=== PATIENT | male | born 1995 | race Caucasian/White ===

== ENCOUNTER 2023-05-23 19:51 | Emergency (ER) | payer MEDICAID ==
[~2023-05-23] VITALS: Ht 180.3 cm; Wt 108.9 kg
[2023-05-23 20:21] VITALS: BP_SYST 139; PULSE 89; RESP 16; TEMP 96.8; O2SAT 98
== END 2023-05-23 22:00 | disposition left against medical advice (07) ==
LOC: SED 19:51
DX: R68.84 Jaw pain (principal); Z53.21 Procedure and treatment not carried out due to patient leaving prior to being seen by health care provider
CPT/HCPCS: 99281